=== PATIENT | female | born 1995 | race Caucasian/White ===

== ENCOUNTER 2017-06-09 08:00 | Outpatient (CLI) | payer OTHER | END 2017-06-09 23:59 | disposition home or self-care (01) | LOC: LAB.R 08:00 | PROVIDERS: ATTEND Registered Nurse | DX: Z36.9 Encounter for antenatal screening, unspecified (principal) | CPT/HCPCS: 87086; 87491; 87591 ==

== ENCOUNTER 2017-06-09 11:00 | Outpatient (CLI) | payer OTHER ==
[2017-06-09 11:28] LABS: BASOPHILS % (AUTO) 0.3 %; EOSINOPHILS % (AUTO) 0.6 %; HCT - HEMATOCRIT 33.8 % (37.0-47.0); LYMPHOCYTES % (AUTO) 25.6 %; MEAN CORPUSCULAR HGB CONC 32.4 g/dL (32.0-36.0); MEAN CORPUSCULAR VOLUME 74.2 fL (81.0-99.0); MEAN PLATELET VOLUME 8.3 fL (7.9-10.8); MONOCYTES # (AUTO) 0.4 10^3/uL (0.0-1.0); MONOCYTES % (AUTO) 5.8 %; NEUTROPHILS # (AUTO) 5.2 10^3/uL (1.5-6.6); NEUTROPHILS % (AUTO) 67.7 %; RED BLOOD COUNT 4.56 10^6/uL (4.20-5.40); RED CELL DISTRIBUTION WIDTH 16.4 % (12.0-15.0); UNCORRECTED WHITE BLOOD COUNT 7.7 x10^3/uL; WHITE BLOOD COUNT 7.7 x10^3/uL (4.8-10.8)
== END 2017-06-09 11:01 | disposition home or self-care (01) ==
LOC: LAB 11:00
PROVIDERS: ATTEND Registered Nurse
DX: Z36.9 Encounter for antenatal screening, unspecified (principal)
CPT/HCPCS: 36415; 81599; 85025; 86762; 86850; 86900; 86901; 87340; 87389

== ENCOUNTER 2017-08-28 07:15 | Outpatient (CLI) | payer OTHER ==
--- NOTE | 2017-08-29 16:15 | Ultrasound Report ---
OB ULTRASOUND: 08/28/2017 CLINICAL INDICATION: anatomy. TECHNIQUE: Real-time scanning was performed with containers sales representative static images obtained. LAST MENSTRUAL PERIOD: 04/09/2017 Clinical Age: 20 weeks 1 day US Age: 20 weeks 0 days EFW Hadlock: 326 grams EFW% Hadlock: 38% Heart Rate: 152 bpm EDC: 01/14/2018 US EDC: 01/15/2018 BPD Hadlock: 20 weeks 0 days; Mean mm 47 HC Hadlock: 20 weeks 0 days; Mean mm 174 AC Hadlock: 20 weeks 3 days; Mean mm 152 FL Hadlock: 19 weeks 4 days; Mean mm 31 Presentation: variable Placental Location: anterior/fundal w/ R synechia Cervical Length: --- Amniotic Fluid: --- FINDINGS There is a single viable intrauterine gestation, in variable position. heart rate is 152 BPM. The placenta is anterior with no evidence of previa. A synechia is incidentally noted across the right side of the gestational sac. Amniotic fluid volume is subjectively normal. By size, the fetus measures 20 weeks 0 days (20 weeks 1 day by LMP). anatomy: The following anatomic structures were visualized and appear normal: The intracranial contents, including the ventricles and posterior fossa ; the lips and orbits; the spine; the heart, including 4 chamber view and outflow tracts, and diaphragm; the abdominal contents, including the stomach, the bilateral kidneys, and urinary bladder, as well as a normal 3 vessel cord insertion; 4 limbs. No free fluid or adnexal lesion is appreciated. IMPRESSION: Single viable intrauterine gestation, with size in keeping with LMP dating. Normal anatomy survey. Right-sided synechia within the gestational sac. TD: 08/28/2017 09:38 MTDD
== END 2017-08-28 07:16 | disposition home or self-care (01) ==
LOC: DI 07:15
PROVIDERS: ATTEND Registered Nurse
DX: Z36.3 Encounter for antenatal screening for malformations (principal)
CPT/HCPCS: 76811

== ENCOUNTER 2017-09-05 09:31 | Inpatient (IN) | payer OTHER ==
[2017-09-05] MEDS ORDERED: ACETAMINOPHEN 325 MG TABLET PO PRN (09:41)
[2017-09-05] MEDS ORDERED: oxyCODONE 5 MG TABLET PO PRN (09:41)
[2017-09-05] MEDS ORDERED: PROMETHAZINE 25 MG TABLET PO PRN (09:42)
--- NOTE | 2017-09-05 09:47 | HISTORY & PHYSICAL EXAMINATION ---
Chief Complaint - Chief Complaint Chief Complaint: R-sided flank pain History of Present Illness - Admitted From Admitted From:: Outpt clinic: [facility] - History Obtained From History obtained from: patient Exam Limitations: none - History of Present Illness HPI Comment/Other: Suellen presents w/ a complaint of severe R-sided flank pain beginning @ 0500, waking her from sleep. The pain is exclusively limited to her CVA region & is constant w/ a severity of 7-10/10, depending on activity. The pain is exacerbated by standing, walking, movement & slightly relieved by complete rest. She reports that she felt that she had a fever & chills early this morning & she took a dose of acetaminophen, which helped relieve her chills but did not affect the extent of her discomfort much. She denies nausea/vomiting/ diarrhea. She is 21 weeks 2 days & reports good FM. She has no abdominal discomfort & she denies dysuria, although she reports increased frequency & urgency as well as foul-smelling urine x3 days. She has a hx of e. coli UTI this w/ negative ASHWINI in early 2nd trimester & a hx of frequent UTI in the past w/ need for suppressive therapy. 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 (FTNSVD x2, PPH x1 w/ blood transfusion; UTIs during pregnancies) : reports: Chronic bladder infection, Frequency HEENT: reports: None Psych: reports: None Derm: reports: None MRSA Hx?: No - Past Surgical History Other past surgical history: None - Family & Social History Family History: Mother: Alive and Well, Father: Alive and Well Living arrangement: At home Living Situation: With family - Substance History Use: Uses substance without health or social issues: NONE Abuse: Recurrent use of substance despite neg consequences: NONE - POLST Patient has POLST: No POLST Status: Full Code Meds/Allgy - Home Medications Home Medications: Ambulatory Orders Medication Instructions Recorded Confirmed Pnv No.122/Iron/Folic Acid 09/05/17 [ Multi Tablet] - Allergies Allergies/Adverse Reactions: Allergies Allergy/AdvReac Type Severity Reaction Status Date / Time No Known Drug Allergies Allergy Verified 12/29/13 14:35 Review of Systems - Constitutional Constitutional: reports: Fever, Chills - Eyes Eyes: denies: Blurred vision, Spots in vision - Ears, Nose & Throat Ears, Nose & Throat: denies: Nasal discharge, Sore throat - Cardiovascular Cariovascular: denies: Palpitations, Chest pain - Respiratory Respiratory: denies: Cough, SOB at rest, SOB with exertion - Gastrointestinal Gastrointestinal: denies: Abdominal pain, Constipation, Diarrhea, Change in bowel habits, Nausea, Vomiting - Genitourinary Genitourinary: reports: Frequency, Urgency. denies: Dysuria - Musculoskeletal Musculoskeletal: reports: Back pain. denies: Limited range of motion - Integumentary Integumentary: denies: Rash, Pruritis - Neurological Neurological: denies: General weakness - Psychiatric Psychiatric: denies: Depression, Anxiety - Other Findings Other Findings: OB: +FM, no LOF, no vaginal bleeding, no changes in vaginal d/c. Exam - Vital Signs Reviewed Vital Signs: Yes - Physical Exam General Appearance: positive: No acute distress, Alert Eyes Bilateral: positive: Normal inspection, PERRL, EOMI ENT: positive: ENT inspection nml Respiratory: positive: Chest non-tender, No respiratory distress, Breath sounds nml Cardiovascular: positive: Regular rate & rhythm, No murmur, No gallop Abdomen: positive: Non-tender, No organomegaly, Other (fundal height: 20cm, palpable movement, FHTs 148bpm) Back: positive: CVA tenderness (R) Skin: positive: Color nml, No rash Extremities: positive: Non-tender, Full ROM, No pedal edema Neurologic/Psychiatric: positive: Oriented x3, CN's nml (2-12), Motor nml, Sensation nml, Mood/affect nml Conclusion/Plan - Lab Results Fish Bones: 09/05/17 09:47 Core Measures - Anticipated LOS I expect patient to be DC'd or transferred within 96 hours.: Yes - Issues Hospital Issues and Management Plan: parenteral antibiotics: cefazolin 1g IVPB q 8 hours, IV hydration, pain management - DVT/VTE - Prophylaxis VTE/DVT Device ordered at admit?: No Not Ordered - Low Risk: Low Risk VTE/DVT Prophylaxis med ordered at admit?: No Not Ordered - Medical Reason: Not indicated - Stroke - Rehab Assessment Rehab services assessment to be ordered?: No
[2017-09-05] MEDS ORDERED: SODIUM CHLORIDE FLUSH 0.9% 10 ML SYRINGE IVP ONE ×2 (09:50→13:33)
[2017-09-05 09:51] LABS: BASOPHILS % (AUTO) 0.1 %; EOSINOPHILS % (AUTO) 0.2 %; HGB - HEMOGLOBIN 9.3 g/dL (12.0-16.0); LYMPHOCYTES % (AUTO) 6.6 %; MEAN CORPUSCULAR HEMOGLOBIN 23.2 pg (27.0-31.0); MEAN CORPUSCULAR HGB CONC 32.6 g/dL (32.0-36.0); MEAN CORPUSCULAR VOLUME 71.3 fL (81.0-99.0); MEAN PLATELET VOLUME 7.5 fL (7.9-10.8); MONOCYTES # (AUTO) 1.3 10^3/uL (0.0-1.0); NEUTROPHILS # (AUTO) 13.4 10^3/uL (1.5-6.6); NEUTROPHILS % (AUTO) 85.1 %; PLT - PLATELET COUNT 216 10^3/uL (130-450); RED BLOOD COUNT 4.01 10^6/uL (4.20-5.40); RED CELL DISTRIBUTION WIDTH 16.7 % (12.0-15.0); WHITE BLOOD COUNT 15.7 x10^3/uL (4.8-10.8)
[2017-09-05] MEDS ORDERED: ceFAZolin 1 GM in SODIUM CHLORIDE 0.9% MINIBAG 100 ML IV SCH (10:00)
[2017-09-05] MEDS ORDERED: LACTATED RINGERS 1,000 ML IV SCH (10:00)
[2017-09-05 10:04] LABS: CALCIUM 8.5 mg/dL (8.5-10.3); CREATININE 0.5 mg/dL (0.4-1.0)
--- NOTE | 2017-09-05 10:45 | PROVIDER PROGRESS NOTE ---
Subjective - Prog Note Date Prog Note Date: 09/05/17 Prog Note Time: 10:30 - Subjective Subjective: I was called to see patient secondary to pt decision that she would rather not be admitted & prefers not to receive any treatment. Patient states that, after discussion with , they have determined that she is unlikely to actually have pyelonephritis & that they would like to avoid antibiotic therapy at this time. She reports persistent pain, but she states that she thinks it is likely just from bending over yesterday while painting. She is refusing to stay in the hospital & is refusing all antibiotic therapy, parenteral or enteral. Objective - Objective General Appearance: positive: No acute distress, Alert ENT: positive: ENT inspection nml - Lab Results Fish Bones: 09/05/17 09:47 09/05/17 09:47 Other Labs: Lab Results x24hrs 09/05/17 09/05/17 Range/Units 09:47 09:47 WBC 15.7 H (4.8-10.8) x10^3/uL RBC 4.01 L (4.20-5.40) 10^6/uL Hgb 9.3 L (12.0-16.0) g/dL Hct 28.6 L (37.0-47.0) % MCV 71.3 L (81.0-99.0) fL MCH 23.2 L (27.0-31.0) pg MCHC 32.6 (32.0-36.0) g/dL RDW 16.7 H (12.0-15.0) % Plt Count 216 (130-450) 10^3/uL MPV 7.5 L (7.9-10.8) fL Neut # 13.4 H (1.5-6.6) 10^3/uL Lymph # 1.0 L (1.5-3.5) 10^3/uL [place] # 1.3 H (0.0-1.0) 10^3/uL Eos # 0.0 (0.0-0.7) 10^3/uL Baso # 0.0 (0.0-0.1) 10^3/uL Absolute Nucleated RBC 0.00 x10^3/uL Nucleated RBC % 0.0 /100WBC Sodium 131 L (135-145) mmol/L Potassium 3.4 L (3.5-5.0) mmol/L Chloride 102 (101-111) mmol/L Carbon Dioxide 20 L (21-32) mmol/L Anion Gap 9.0 (6-13) BUN 8 (6-20) mg/dL Creatinine 0.5 (0.4-1.0) mg/dL Estimated GFR (MDRD) 154 (>89) Glucose 92 (70-100) mg/dL Calcium 8.5 (8.5-10.3) mg/dL Assessment/Plan - Problem List (1) Pyelonephritis affecting in second trimester Impression: Patient refusing admission & treatment. Reviewed @ length risks related to untreated pyelonephritis in , including maternal sepsis & , compromise, labor. Reviewed pyuria, CVAT, leukocytosis, fever, all consistent w/ diagnosis of pyelonephritis in & reviewed unlikely to resolve, as patient suspects it will, with use of cranberry extract & "flushing out" with water. Likely source of refusal is childcare problems r/t spousal reluctance to provide care w /o her assistance, and we reviewed other options for management, which pt refuses. Reviewed that pt will need to complete AMA form if she does not desire recommended management. She articulates complete understanding of all associated risks and has emergency contact information.
== END 2017-09-05 10:50 | disposition left against medical advice (07) | DRG 781 ==
LOC: FBP 09:31 → WFO 09:31 → FBP 09:39
PROVIDERS: ADMIT Registered Nurse; ATTEND Registered Nurse
DX: O23.02 Infections of kidney in pregnancy, second trimester (principal); Z3A.21 21 weeks gestation of pregnancy
CPT/HCPCS: 80048; 85025

== ENCOUNTER 2017-09-05 10:12 | Outpatient (CLI) | payer OTHER | END 2017-09-05 10:13 | disposition home or self-care (01) | LOC: LAB.R 10:12 | PROVIDERS: ATTEND Registered Nurse | DX: N10 Acute pyelonephritis (principal) | CPT/HCPCS: 87086 ==

== ENCOUNTER 2017-09-05 13:14 | Inpatient (IN) | payer OTHER ==
[2017-09-05] MEDS ORDERED: oxyCODONE 5 MG TABLET PO PRN (13:21)
[2017-09-05] MEDS ORDERED: PROMETHAZINE 25 MG TABLET PO PRN (13:21)
[2017-09-05] MEDS: ceFAZolin 1 GM in SODIUM CHLORIDE 0.9% MINIBAG 100 ML IV SCH (13:58)
[2017-09-05] MEDS: LACTATED RINGERS 1,000 ML IV SCH ×2 (13:58→22:04)
--- NOTE | 2017-09-05 17:22 | HISTORY & PHYSICAL EXAMINATION ---
Chief Complaint - Chief Complaint Chief Complaint: R-sided flank pain, now with severe nausea/vomiting. History of Present Illness - Admitted From Admitted From:: Home - History Obtained From History obtained from: Patient - History of Present Illness HPI Comment/Other: Suellen Iqbal is a 22 y/o @ 21w2d by first trimester US who was admitted earlier today for acute pyelonephritis. Shortly after the time of admission, she decided that she did not, in fact, desire treatment, and was determined that she did not have an infection. She elected to leave the hospital against medical advice and declined any and all antibiotic treatment at that time. Shortly thereafter, Suellen began to have profound nausea with vomiting accompanying her discomfort. As her condition had deteriorated & she was feeling significantly more unpleasant, Suellen elected to return to the hospital to receive the previously recommended care. 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 (FTNSVD x2, PPH x1 w/ blood transfusion; UTIs during pregnancies) : reports: Chronic bladder infection, Frequency HEENT: reports: None Psych: reports: None Derm: reports: None MRSA Hx?: No - Substance History Use: Uses substance without health or social issues: NONE - POLST Patient has POLST: No POLST Status: Full Code Meds/Allgy - Home Medications Home Medications: Ambulatory Orders Medication Instructions Recorded Confirmed Pnv No.122/Iron/Folic Acid 1 tab PO DAILY 09/05/17 09/05/17 [ Multi Tablet] - Allergies Allergies/Adverse Reactions: Allergies Allergy/AdvReac Type Severity Reaction Status Date / Time No Known Drug Allergies Allergy Verified 12/29/13 14:35 Review of Systems - Constitutional Constitutional: reports: Fever (took acetaminophen earlier in the morning, felt feverish, Tmax has been 99.1 po), Chills - Cardiovascular Cariovascular: denies: Irregular heart rate, Palpitations, Chest pain - Respiratory Respiratory: denies: Cough, SOB at rest, SOB with exertion - Gastrointestinal Gastrointestinal: reports: Nausea, Vomiting. denies: Abdominal pain, Constipation, Diarrhea, Change in bowel habits - Genitourinary Genitourinary: reports: Frequency, Flank pain (R-sided, 7-06/10, began at 0500) , Other (foul-smelling urine x3 days). denies: Dysuria, Urgency - Musculoskeletal Musculoskeletal: reports: Back pain. denies: Muscle pain - Integumentary Integumentary: denies: Rash, Pruritis - Neurological Neurological: denies: General weakness, Focal weakness - Psychiatric Psychiatric: denies: Depression, Anxiety - Other Findings Other Findings: ob: +FM, no contractions or cramping ,no LOF, no vaginal bleeding. Exam - Vital Signs Vital Signs: Vital Signs x48h Temp Pulse Resp BP Pulse Ox 09/05/17 13:30 37.2 C 114 H 16 106/60 99 - Physical Exam General Appearance: positive: No acute distress Eyes Bilateral: positive: Normal inspection, PERRL, EOMI Respiratory: positive: Chest non-tender, No respiratory distress, Breath sounds nml Cardiovascular: positive: Regular rate & rhythm, No murmur Abdomen: positive: Non-tender Back: positive: CVA tenderness (R) Skin: positive: Color nml, No rash Extremities: positive: Non-tender, Full ROM, No pedal edema Neurologic/Psychiatric: positive: Oriented x3, CN's nml (2-12), Motor nml, Sensation nml, Mood/affect nml Conclusion/Plan - Lab Results Lab results reviewed: Yes Core Measures - Anticipated LOS I expect patient to be DC'd or transferred within 96 hours.: Yes - Issues Hospital Issues and Management Plan: admit to inpatient for symptom management, pain & nausea/vomiting, as well as parenteral antibiotics q 8 hrs & IV hydration, continue to monitor VS & administer antipyretic as indicated - DVT/VTE - Prophylaxis VTE/DVT Device ordered at admit?: No Not Ordered - Low Risk: Low Risk Not Ordered - Medical Reason: Not indicated VTE/DVT Prophylaxis med ordered at admit?: No Not Ordered - Medical Reason: Not indicated
[2017-09-05] MEDS: ACETAMINOPHEN 325 MG TABLET PO PRN ×2 (17:41→21:31)
[2017-09-06] MEDS: ceFAZolin 1 GM in SODIUM CHLORIDE 0.9% MINIBAG 100 ML IV SCH ×3 (00:22→16:01)
[2017-09-06] MEDS: ACETAMINOPHEN 325 MG TABLET PO PRN (01:28)
[2017-09-06] MEDS: LACTATED RINGERS 1,000 ML IV SCH ×2 (06:26→14:31)
--- NOTE | 2017-09-06 09:33 | PROVIDER PROGRESS NOTE ---
Subjective - Prog Note Date Prog Note Date: 09/06/17 Prog Note Time: 09:30 - Subjective Pt reports feeling: Improved Subjective: Suellen reports that her discomfort has resolved entirely. She received an oral dose of acetaminophen yesterday afternoon & has required no analgesia since. She has utilized a heating pad to her R flank w/ good effect, but she feels she can do w/o the heating pad because her pad is so significantly improved. She denies nausea & she does not report chills or a sense of fever. She states that the foul odor of her urine has also resolved. She is eager for discharge home. She is nursing her & pumped x2 last night. She is distressed that her had to feed the infant a bottle of formula overnight. Current Medications - Current Medications Current Medications: cefazolin 1g IVPB q 8 hours; she is s/p 3 doses. Objective - Vital Signs/Intake & Output Vital Signs: Vital Signs x48h Temp Pulse Resp BP Pulse Ox 09/06/17 08:39 37.0 C 78 16 101/66 99 09/06/17 01:38 37.2 C 75 16 91/40 L 99 Intake & Output: Intake & Output 09/03/17 09/04/17 09/05/17 09/06/17 23:59 23:59 23:59 23:59 Intake Total 2300 1700 Output Total 500 300 Balance 1800 1400 - Objective General Appearance: positive: No acute distress, Alert Eyes Bilateral: positive: Normal inspection, PERRL, EOMI ENT: positive: ENT inspection nml Respiratory: positive: Chest non-tender, No respiratory distress, Breath sounds nml Cardiovascular: positive: Regular rate & rhythm, No murmur, No gallop Abdomen: positive: Non-tender, Other (gravid, palpable movement; poor abdominal tone) Back: positive: Nml inspection. negative: CVA tenderness (R) Skin: positive: Color nml, No rash, Warm, Dry Extremities: positive: Non-tender, Full ROM, Nml appearance, No pedal edema Neurologic/Psychiatric: positive: Oriented x3, CN's nml (2-12), Motor nml, Sensation nml, Mood/affect nml - Other Results/Comments Other Results/Comments: preliminary urine culture report from specimen obtained 24 hours prior: >100, 000 e.coli; sensitivities pending Assessment/Plan - Problem List (1) Pyelonephritis affecting in second trimester Impression: improved, afebrile x19 hours nausea resolved anemia no discomfort/dysuria hx of recurrent UTI 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 reviewed pathophysiology of pyelonephritis in @ length w/ pt 2. reviewed need for ongoing antimicrobial therapy: will continue w/ cephalexin as po therapy x2 weeks, then begin suppressive dosing 3. will receive 4th dose of IV cefazolin today--if she remains afebrile x24 hours, plan d/c to home 4. f/u as an outpt in clinic, ASHWINI @ next visit 5. reviewed anemia & implications, recommend iron supplementation BID & iron- rich foods 6. reviewed warning s/sx, PTL s/sx, reasons to call; pt has emergency contact information & articulates full understanding.
--- NOTE | 2017-09-06 09:42 | Discharge Plan ---
Discharge Plan Disposition: Home, Self Care Condition: Good Prescriptions: Cephalexin [Keflex] 500 mg PO Q6HR 14 Days #56 capsule Ferrous Gluconate [Fergon] 270 mg PO BID #180 tablet Diet: Regular Activity Restrictions: Activity as Tolerated Shower Restrictions: No Driving Restrictions: No Weight Bearing: Full Weight Instruction Topics: Labor, Pyelonephritis Dc, Urinary Tract Infecs Women, UTI Additional Instructions or Follow Up instructions: Please make an appointment to be seen in the [facility] clinic in 2 weeks. Call if you are concerned about your health or well-being before that time for an earlier evaluation. No Smoking: If you smoke, Please STOP! Call for help. Follow-up with: Vineet Pat CNM, DIN[facility] [Provider Admit Priv/Credential] -
--- NOTE | 2017-09-06 09:49 | DISCHARGE SUMMARY ---
Discharge Summary Admit Date: 09/05/17 Discharge Date: 09/06/17 Discharging Provider: alexi Code Status: Attempt Resuscitation Condition at Discharge: Good Discharge Disposition: Home, Self Care Discharge Facility Name: [facility] - DIAGNOSES Admission Diagnoses: acute pyelonephritis complicating 21 weeks' gestation Discharge Diagnoses with Status of Each Condition: acute pyelonephritis, complicating 21 weeks' gestation - HPI History of Present Illness: Suellen was admitted w/ acute onset of R-sided flank pain, accompanied by nausea/ vomiting, fever, and foul-smelling urine. She has a history of recurrent UTI, and had been treated effectively in the first trimester for an e. coli UTI. - HOSPITAL COURSE Hospital Course: Suellen received IV hydration, antipyretic therapy, analgesia, and IV antimicrobial therapy w/ cefazolin, x a total of 4 doses. Her status improved significantly & her pain was eliminated entirely. She was no longer nauseated & reported resolution of her foul-smelling urine. She was ambulating and voiding w/o difficulty, reported excellent pain control, and was tolerating regular po intake. She reported good movement & stated that she would be compliant with continued outpatient oral antimicrobial therapy. Her preliminary urine culture demonstrated >100,000 e. coli, and we discussed the implications of this. Sensitivities were still pending, but she would go home w / Rx for po cephalexin x14 days & then would begin suppressive therapy thereafter. She was able to fully articulate warning s/sx, PTL s/sx, reasons to call. She has emergency contact information & will call to schedule a follow -up appointment w/ me in 2 weeks, earlier PRN. She will be discharged to home in good condition once she has been consistently afebrile x24 hours. - ALLERGIES Allergies/Adverse Reactions: Allergies Allergy/AdvReac Type Severity Reaction Status Date / Time No Known Drug Allergies Allergy Verified 12/29/13 14:35 - MEDICATIONS Home Medications: Ambulatory Orders Medication Instructions Recorded Confirmed Pnv No.122/Iron/Folic Acid 1 tab PO DAILY 09/05/17 09/05/17 [ Multi Tablet] Cephalexin [Keflex] 500 mg PO Q6HR 14 Days #56 capsule 09/06/17 Ferrous Gluconate [Fergon] 270 mg PO BID #180 tablet 09/06/17 - PHYSICAL EXAM AT DISCHARGE General Appearance: positive: No acute distress, Alert Eyes Bilateral: positive: Normal inspection, PERRL ENT: positive: ENT inspection nml Respiratory: positive: Chest non-tender, No respiratory distress, Breath sounds nml Cardiovascular: positive: Regular rate & rhythm, No murmur, No gallop Abdomen: positive: Non-tender, Other (gravid, palpable movement, poor abdominal tone) Back: positive: Nml inspection. negative: CVA tenderness (R), CVA tenderness (L ) Skin: positive: Color nml, No rash, Warm, Dry Extremities: positive: Non-tender, Full ROM, Nml appearance, No pedal edema Neurologic/Psychiatric: positive: Oriented x3, CN's nml (2-12), Motor nml, Sensation nml, Mood/affect nml - FOLLOW UP Follow Up: x2 weeks in outpt clinic w/ Vineet Pat CNM, RISK CONTROL CONSULTANT, earlier PRN - TIME SPENT Time Spent in Discharge (Minutes): 30
[2017-09-06 16:07] VITALS: BP 110/63
[2017-09-06] MEDS ORDERED: SODIUM CHLORIDE FLUSH 0.9% 10 ML SYRINGE IVP ONE (16:31)
== END 2017-09-06 16:50 | disposition home or self-care (01) | DRG 781 ==
LOC: WFO 13:14 → FBP 13:15 → WFO 13:20 → FBP 13:21
PROVIDERS: ADMIT Registered Nurse; ATTEND Registered Nurse
DX: O23.02 Infections of kidney in pregnancy, second trimester (principal); B96.20 Unspecified Escherichia coli [E. coli] as the cause of diseases classified elsewhere; O99.012 Anemia complicating pregnancy, second trimester; D64.9 Anemia, unspecified; Z3A.21 21 weeks gestation of pregnancy; Z87.440 Personal history of urinary (tract) infections
CPT/HCPCS: 80048; 85025; 87086

== ENCOUNTER 2017-09-19 08:00 | Outpatient (CLI) | payer OTHER | END 2017-09-19 08:01 | disposition home or self-care (01) | LOC: LAB.R 08:00 | PROVIDERS: ATTEND Registered Nurse | DX: N10 Acute pyelonephritis (principal) | CPT/HCPCS: 87086 ==

== ENCOUNTER 2017-09-26 13:20 | Outpatient (CLI) | payer OTHER | END 2017-09-26 13:21 | disposition home or self-care (01) | LOC: LAB.R 13:20 | PROVIDERS: ATTEND Nurse Practitioner Obstetrics & Gynecology | DX: R30.0 Dysuria (principal) | CPT/HCPCS: 87086 ==